=== PATIENT | female | born 1970 | race Caucasian/White ===

== ENCOUNTER → 2016-08-13 | Outpatient (CLI) | payer OTHER ==
[~2016-08-13] MED LIST: ADVIN25050 INH; EPP3/2 IM
[2016-08-13 17:29] LABS: GLUCOSE 97 mg/dl (70-99)
[2016-08-13 17:35] LABS: CHOLESTEROL 172 mg/dl (0-200); CHOLESTEROL/HDL RATIO 2.9; HDL CHOLESTEROL 59 mg/dl; TRIGLYCERIDES 190 mg/dl (0-150); VERY LOW DENSITY LIPOPROT CALC 38 mg/dl
== END | disposition home or self-care (01) ==
LOC: C.LABPBG 15:19
PROVIDERS: ATTEND Physician Assistant Medical
DX: Z00.00 Encounter for general adult medical examination without abnormal findings (principal)

== ENCOUNTER 2016-08-31 15:38 | Emergency (ER) | payer OTHER ==
[~2016-08-31] VITALS: Ht 165.1 cm; Wt 89.0 kg
[2016-08-31 15:48] VITALS: BP 128/80; PULSE 111; TEMP 38.4; O2SAT 94; Ht 165.1 cm; Wt 89.0 kg
== END 2016-08-31 16:58 | disposition left against medical advice (07) ==
LOC: C.EDB 15:39
DX: R10.30 Lower abdominal pain, unspecified (principal)